=== PATIENT | male | born 1975 | race Hispanic/Latino ===

== ENCOUNTER 2020-01-08 07:56 | Emergency (ER) | payer SELFPAY ==
[~2020-01-08] VITALS: Ht 175.3 cm; Wt 104.3 kg
[2020-01-08] MEDS ORDERED: KETOROLAC TROMETHAMINE 60 MG/2 ML VIAL IM ONE (08:15)
== END 2020-01-08 09:27 | disposition home or self-care (01) ==
LOC: ER 08:30
DX: S93.401A Sprain of unspecified ligament of right ankle, initial encounter (principal); X50.1XXA Overexertion from prolonged static or awkward postures, initial encounter; Y99.0 Civilian activity done for income or pay; Z98.0 Intestinal bypass and anastomosis status
CPT/HCPCS: 73610; 99283; J1885